=== PATIENT | female | born 1950 | race Caucasian/White ===

== ENCOUNTER 2024-09-23 12:21 | Emergency (ER) | payer MEDICARE, SELFPAY ==
--- NOTE | 2024-09-23 12:50 | ED.URI ---
HPI - URI/Sore Throat General Chief Complaint: Upper Respiratory Infection Stated Complaint: cough, heavy chest ,congestion Time Seen by Provider: 09/23/24 12:50 Source: patient and RN notes reviewed Mode of arrival: ambulatory Limitations: no limitations History of Present Illness HPI Narrative: 74-year-old female presents with concern for one-week history of nasal congestion, rhinorrhea, cough, chest congestion. Reports over the last 3-5 days symptoms have become worse and settled into her chest. She reports body aches. She has been taking DayQuil and StephanieQugavi MD elicited complaint: cough, sore throat, nasal congestion and sinus pain Related Data Home Medications ?Medication ?Instructions ?Recorded ?Confirmed ?Last Taken ?Type ezetimibe 10 mg tablet mg 09/23/24 Unknown History fluticasone propionate 50 intranasal 09/23/24 Unknown History mcg/actuation nasal spray,suspension folic acid 1 mg tablet 09/23/24 Unknown History hydrochlorothiazide 12.5 mg tablet mg 09/23/24 Unknown History losartan 50 mg tablet mg 09/23/24 Unknown History methotrexate sodium 2.5 mg tablet mg 09/23/24 Unknown History montelukast 10 mg tablet mg 09/23/24 Unknown History omeprazole 40 mg capsule,delayed mg 09/23/24 Unknown History release oxybutynin chloride 15 mg mg PO 09/23/24 Unknown History tablet,extended release 24 hr rosuvastatin 10 mg tablet mg 09/23/24 Unknown History Allergies Allergy/AdvReac Type Severity Reaction Status Date / Time codeine Allergy Unknown HEADACHES Verified 09/23/24 12:30 Review of Systems Review of Systems: CONSTITUTIONAL: Reports malaise, denies fever. EYES: Denies visual changes, redness, or discharge. ENT: Reports rhinorrhea, congestion, sinus pain. Denies otalgia and sore throat. CARDIOVASCULAR: Denies chest pain, palpitations, or edema. RESPIRATORY: Reports cough. Denies dyspnea. GASTROINTESTINAL: Denies abdominal pain, nausea, vomiting, diarrhea SKIN: Denies rash or itching. MUSCULOSKELETAL: Reports myalgia. NEUROLOGIC: Reports headache. All systems reviewed & are unremarkable except as noted in HPI and below PMFSH Comments At time of signature, agree with nursing past medical, surgical, social and family history. There is no relevant family history pertinent to the presenting complaint Exam Narrative: GENERAL: Well-appearing, well-nourished, and in no acute distress. HEAD: Normocephalic EYES: PERRLA, conjunctivae clear ENT: Nares clear, turbinates edematous and erythematous. Mucous membranes moist. TM pearly garzon with dull light reflex bilaterally; no tragal tenderness. Oropharynx not erythematous without lesions. Tonsils not enlarged and without exudate, no drooling, no hoarseness, no trismus, uvula midline. NECK: Supple. No lymphadenopathy CHEST: Scattered rhonchi and mild wheeze, otherwise Clear to auscultation, breath sounds equal. No rales, or stridor. No respiratory distress, speaks in full sentences. HEART: Regular rate and rhythm. No murmur heard. SKIN: Warm, dry, no rash. NEURO: Alert and oriented x3. PSYCH: Normal mood and affect Course Course Emergency Course: Patient is aware of diagnosis, understands and agrees to treatment plan. Anticipatory guidance given. Patient agrees to follow-up as directed and is aware of reasons to seek care at the emergency department. Portions of this record may have been created with voice recognition software Level of Care: Express Care Visit Vital Signs Vital signs: Reviewed. MDM - URI/Sore Throat MDM Narrative Medical decision making narrative: Differential diagnosis considered: Jones virus, strep pharyngitis, allergic rhinitis, upper respiratory tract infection, sinusitis, rhinosinusitis, nasopharyngitis. viral pharyngitis, otitis media, otitis externa, pneumonia, bronchitis, viral cough syndrome, viral syndrome, and influenza. Exam findings show no acute concerns or changes; patient is non-toxic appearing and is in no distress. Patient is appropriate for outpatient treatment and follow-up. Lab Data Attestation: I reviewed the patient's lab results. Critical Care Time Critical Care Time Critical Care Time: No Discharge Plan Discharge Clinical Impression: Sinobronchitis Patient Disposition: Home, Self-Care Condition: Stable Instructions: Antibiotic Form, Sinusitis (ED), Acute Bronchitis (ED) Additional Instructions: Take medications as prescribed Recommend antihistamine such as Benadryl at night time and Zyrtec or Cassi during the day Use inhaler as needed for cough, wheezing, shortness of breath or chest tightness. Also, recommend symptomatic treatment includes: rest, fluids, and increase humidity of the air at home. Recommend Acetaminophen as directed on the bottle to reduce fever, pain, headache. Avoid smoking/second-hand smoke. Please schedule a follow-up visit with your personal physician for further evaluation and treatment within 3-5days. If your symptoms persist, change or worsen significantly before you can contact your personal physician then please, without delay, go to the emergency department for further evaluation. Patient Language: Bulgarian Prescriptions: New doxycycline monohydrate 100 mg tablet 100 mg PO BID 7 Days Qty: 14 0RF methylprednisolone [Medrol (Robel)] 4 mg tablets,dose pack See Rx Instructions .ROUTE .COMPLEX Qty: 21 0RF Rx Instructions: orally per package directions albuterol sulfate 90 mcg/actuation HFA aerosol inhaler 2 puff INHALATION QID PRN (Reason: shortness of breath or wheezing) Qty: 8.5 0RF No Action losartan 50 mg tablet oxybutynin chloride 15 mg tablet extended release 24hr PO omeprazole 40 mg capsule,delayed release(DR/EC) methotrexate sodium 2.5 mg tablet folic acid 1 mg tablet montelukast 10 mg tablet fluticasone propionate 50 mcg/actuation spray,suspension INTRANASAL ezetimibe 10 mg tablet rosuvastatin 10 mg tablet hydrochlorothiazide 12.5 mg tablet Follow-up/Referrals: PHYSICIAN NOT ON STAFF,NONSTAFF [Primary Care Provider] - Time of Disposition: 13:01
[2024-09-23 12:52] VITALS: BP 119/73; PULSE 58; RESP 20; TEMP 37.2; O2SAT 96
== END 2024-09-23 13:05 | disposition home or self-care (01) ==
PROVIDERS: Emergency Provider Nurse Practitioner
DX: J32.9 Chronic sinusitis, unspecified (principal); J40 Bronchitis, not specified as acute or chronic; I10 Essential (primary) hypertension; E78.00 Pure hypercholesterolemia, unspecified; K21.9 Gastro-esophageal reflux disease without esophagitis
CPT/HCPCS: 99203; G0463

== ENCOUNTER 2025-10-03 10:52 | Emergency (ER) | payer MEDICARE, SELFPAY ==
--- NOTE | ~2025-10-03 | XR_ITS ---
Examination: XR chest 2V Clinical History: cough, sob 1x week nonsmoker hx pneumonia, asthma Comparison: 02/10/2019 Technique: PA and Lateral Findings: Cardiomediastinal silhouette normal size and configuration. Lungs clear. No acute bony abnormality. IMPRESSION: 1. No acute cardiopulmonary findings. Reviewed, dictated and finalized at location R. [employer]
[2025-10-03 11:02] VITALS: BP 125/52; PULSE 85; RESP 22; TEMP 37.1; O2SAT 98
--- NOTE | 2025-10-03 11:30 | ED_ITS ---
HPI - URI/Sore Throat General Chief Complaint: Upper Respiratory Infection Stated Complaint: trouble breathing/sore throat/chest tightness Time Seen by Provider: 10/03/25 11:23 Source: patient and RN notes reviewed Mode of arrival: ambulatory Limitations: no limitations History of Present Illness HPI Narrative: 75-year-old female patient presents today with a one-week history of cough, chest congestion and tightness, intermittent fever up to 100.2. Symptoms worsened for the past 3 days. She also developed a sore throat over the last 2 days. She does report some shortness of breath with coughing episodes as well. She has tried DayQuil, NyQuil, and Tylenol with minimal relief. No history of asthma or COPD. She is a nonsmoker. Related Data Home Medications ?Medication ?Instructions ?Recorded ?Confirmed ?Last Taken ?Type ezetimibe 10 mg tablet mg 09/23/24 Unknown History fluticasone propionate 50 intranasal 09/23/24 Unknown History mcg/actuation nasal spray,suspension folic acid 1 mg tablet 09/23/24 Unknown History hydrochlorothiazide 12.5 mg tablet mg 09/23/24 Unknow n History losartan 50 mg tablet mg 09/23/24 Unknown History methotrexate sodium 2.5 mg tablet mg 09/23/24 Unknown History montelukast 10 mg tablet mg 09/23/24 Unknown History omeprazole 40 mg capsule,delayed mg 09/23/24 Unknown History release oxybutynin chloride 15 mg mg PO 09/23/24 Unknown Hist ory tablet,extended release 24 hr rosuvastatin 10 mg tablet mg 09/23/24 Unknown History cetirizine 10 mg tablet mg 10/03/25 Unknown History gabapentin 100 mg capsule mg 10/03/25 Unknown History pravastatin 20 mg tablet mg 10/03/25 Unknown History Allergies Allergy/AdvReac Type Severity Reaction Status Date / Time codeine Allergy Unknown HEADACHES Verified 10/03/25 11:24 rosuvastatin AdvReac Intermediate PAIN Verified 10/03/25 11:24 [facility] Past Medical History Medical History (Updated 10/03/25 @ 11:40 by Stephenie Montiel, [employer], [employer]) Psoriasis GERD (gastroesophageal reflux disease) Hypercholesterolemia Comments At time of signature, I have reviewed and agree with nursing past medical, surgical, social and family history unless otherwise noted. Please see nursing chart for further information. There is no relevant family history pertinent to the presenting complaint Exam Narrative: GENERAL: Mildly ill-appearing, well-nourished, and in no acute distress. HEAD: Normocephalic, atraumatic. EYES: EOMI. No redness or drainage. Conjunctivae normal. ENT: Mucous membranes pink and moist. Nares clear. No rhinorrhea. TMs normal bilaterally. Throat mildly erythematous without edema or exudate. Uvula midline. NECK: Normal AROM. Supple. No lymphadenopathy. CHEST: No respiratory distress. Slight inspiratory wheezing in the bilateral lower lobes, otherwise clear HEART: Regular rate and rhythm. No murmur appreciated. EXTREMITIES: Normal range of motion. No edema. SKIN: Warm, dry, no rash. Capillary refill normal. Normal skin turgor. NEURO: No focal deficits. Alert and oriented x3. Gait steady. PSYCH: Normal affect. No signs of depression or anxiety. Course Course Level of Care: Express Care Visit Vital Signs Vital signs: Vital Signs Temperature 98.7 F 10/03/25 11:02 Pulse Rate 85 10/03/25 11:02 Respiratory Rate 22 H 10/03/25 11:02 Blood Pressure 125/52 L 10/03/25 11:02 Pulse Oximetry 98 10/03/25 11:02 Oxygen Delivery Room Air 10/03/25 11:02 Temperature 98.7 F 10/03/25 11:02 Pulse Rate 85 10/03/25 11:02 Respiratory Rate 22 H 10/03/25 11:02 Blood Pressure 125/52 L 10/03/25 11:02 Pulse Oximetry 98 10/03/25 11:02 Oxygen Delivery Room Air 10/03/25 11:02 Reviewed MDM MDM Narrative Medical decision making narrative: 75-year-old female patient presents today with a one-week history of cough, chest congestion and tightness, intermittent fever up to 100.2. Symptoms worsened for the past 3 days. She also developed a sore throat over the last 2 days. She does report some shortness of breath with coughing episodes as well. She has tried DayQuil, NyQuil, and Tylenol with minimal relief. No history of asthma or COPD. She is a nonsmoker. Upon exam, patient has a mildly erythematous throat without edema or exudate. Slight inspiratory wheezing in the bilateral lower lobes, otherwise clear. Chest x-ray negative. Rapid strep positive. Patient will be started on a course of steroids for her cough and chest tightness as well as a course of Keflex for her strep throat as amoxicillin interacts with her methotrexate. Patient agrees with plan. Vital signs stable. Anticipatory guidance given. Vital signs stable Differential Diagnosis Differential Diagnosis: Strep throat, URI, pneumonia, bronchitis Lab Data [facility] Lab Attestation statement: I personally reviewed the patient's lab results. Lab results narrative: Rapid strep positive Imaging Data Radiologist's impression: ITS Impressions Chest X-Ray 10/03/25 11:26 IMPRESSION: 1. No acute cardiopulmonary findings. Critical Care Time Critical Care Time Critical Care Time: No Discharge Plan Discharge Clinical Impression: Strep throat, Bronchitis Upper respiratory infection Qualifiers: URI type: unspecified URI Qualified Code(s): J06.9 - Acute upper respiratory infection, unspecified Patient Disposition: Home Condition: Stable Instructions: Antibiotic Form, Strep Throat (DC), Acute Bronchitis (ED) Additional Instructions: You have tested positive for strep throat. Please take the Keflex as prescribed until gone. Your chest x-ray is negative for pneumonia. Please take the prednisone as prescribed for your cough and shortness of breath. You may continue ihul-hyi-sknacyc medication as needed. Follow-up with your PCP in 3 days if symptoms are not improving. Go to the ER immediately if symptoms worsen. Patient Language: Italian Prescriptions: New cephalexin 500 mg capsule 500 mg PO BID 10 Days Qty: 20 0RF prednisone 20 mg tablet 40 mg PO DAILY 5 Days Qty: 10 0RF No Action losartan 50 mg tablet oxybutynin chloride 15 mg tablet extended release 24hr PO omeprazole 40 mg capsule,delayed release(DR/EC) methotrexate sodium 2.5 mg tablet folic acid 1 mg tablet montelukast 10 mg tablet fluticasone propionate 50 mcg/actuation spray,suspension INTRANASAL ezetimibe 10 mg tablet rosuvastatin 10 mg tablet hydrochlorothiazide 12.5 mg tablet albuterol sulfate 90 mcg/actuation HFA aerosol inhaler 2 puff INHALATION QID PRN (Reason: shortness of breath or wheezing) Qty: 8.5 0RF cetirizine 10 mg tablet pravastatin 20 mg tablet gabapentin 100 mg capsule Follow-up/Referrals: Marilu,Levi [Other] Time of Disposition: 11:41
[2025-10-03 11:37] LABS: EDSTREPNEGPOS1 Positive (Negative)
== END 2025-10-03 12:09 | disposition home or self-care (01) ==
PROVIDERS: Emergency Provider Nurse Practitioner
DX: J02.0 Streptococcal pharyngitis (principal); J40 Bronchitis, not specified as acute or chronic; E78.00 Pure hypercholesterolemia, unspecified; K21.9 Gastro-esophageal reflux disease without esophagitis; L40.9 Psoriasis, unspecified
CPT/HCPCS: 71046; 87880; 99213; G0463